=== PATIENT | male | born 1955 | race Two or more races ===

== ENCOUNTER 2023-10-29 10:11 | Emergency (ER) | payer OTHER ==
[~2023-10-29] VITALS: Ht 170.2 cm; Wt 80.1 kg
[2023-10-29 10:42] VITALS: BP 134/86; PULSE 61; RESP 18; TEMP 98; O2SAT 100
[2023-10-29] MEDS ORDERED: NAPR-746 PO (10:46)
[2023-10-29] MEDS ORDERED: CEPH500C PO (10:46)
== END 2023-10-29 10:54 | disposition home or self-care (01) ==
LOC: ER 10:11
DX: S90.462A Insect bite (nonvenomous), left great toe, initial encounter (principal); I10 Essential (primary) hypertension; E11.9 Type 2 diabetes mellitus without complications; E78.5 Hyperlipidemia, unspecified; Z79.899 Other long term (current) drug therapy; W57.XXXA Bitten or stung by nonvenomous insect and other nonvenomous arthropods, initial encounter; Y93.89 Activity, other specified; Y92.89 Other specified places as the place of occurrence of the external cause; Y99.8 Other external cause status